=== PATIENT | female | born 1995 ===

== ENCOUNTER 2023-08-24 13:16 | Emergency (ER) | payer OTHER ==
[2023-08-24] MEDS ORDERED: Dexamethasone 10 MG/ML VIAL ONE (14:09)
[2023-08-24] MEDS ORDERED: Ketorolac Tromethamine 30 MG/ML VIAL ONE (14:09)
== END 2023-08-24 13:58 | disposition home or self-care (01) ==
LOC: CSHERS 13:16
DX: M54.12 Radiculopathy, cervical region (principal)
CPT/HCPCS: 96372; 99283; J1100; J1885